=== PATIENT | female | born 1975 | race Caucasian/White ===

== ENCOUNTER 2023-05-14 20:58 | Observation (INO) ==
[2023-05-14] MEDS ORDERED: SODIUM CHLORIDE 0.9% 1,000 ML IV STA (21:02)
[2023-05-14 22:10] LABS: Basophils # (auto) 0.03 K/uL (0.00-0.20); Basophils % (auto) 0.3 %; Eosinophils # (auto) 0.01 K/uL (0.00-0.50); Eosinophils % (auto) 0.1 %; Hematocrit (blood only) 42.1 % (37.0-47.0); Hemoglobin 13.9 g/dl (12.0-16.0); Immature Granulocytes # (auto) 0.04 K/uL (0.01-0.20); Immature Granulocytes % (auto) 0.5 %; Lymphocytes # (auto) 0.84 K/uL (1.20-3.40); Lymphocytes % (auto) 9.5 %; Mean Corpuscular Hemoglobin 28.2 pg (25.0-34.0); Mean Corpuscular Volume 85.4 fL (80.0-100.0); Mean Platelet Volume 11.1 fL (9.4-12.4); Monocytes # (auto) 0.54 K/uL (0.11-0.59); Monocytes % (auto) 6.1 %; Neutrophils # (auto) 7.39 K/uL (1.40-6.50); Neutrophils % (auto) 83.5 %; Platelet Count 403 K/uL (130-400); Red Blood Count 4.93 M/uL (4.20-5.40); White Blood Count 8.85 K/ul (4.8-10.8)
[2023-05-14 22:16] LABS: Alanine Aminotransferase 40 U/L (7-52); Albumin Globulin Ratio 1.2 (0.9-2); Albumin Level 4.2 gm/dl (3.4-5.0); Alkaline Phosphatase 66 U/L (34-104); Anion Gap 12 (3-11); Aspartate Aminotransferase 29 U/L (13-39); BUN Creatinine Ratio 10.1 (10-20); Bilirubin,Total 0.5 mg/dl (0.2-1.0); Blood Urea Nitrogen 7 mg/dl (6-23); Calcium 9.9 mg/dl (8.6-10.3); Carbon Dioxide 23 mmol/L (21-32); Chloride 104 mmol/L (98-107); Est GFR (African American) 119.3 ml/min; Est GFR (Non-African American) 102.9 ml/min; Globulin 3.4 gm/dl (2.5-4.0); Glucose 94 mg/dl (70-99(Fasting)); Lipase 140 U/L (11-82); Potassium 3.2 mmol/L (3.5-5.1); Sodium 139 mmol/L (136-145); Total Protein 7.6 gm/dl (6.0-8.3)
[2023-05-15] MEDS ORDERED: FAMOTIDINE 20MG IV PUSH 20 MG/5 ML SYR IV STA (00:49)
[2023-05-15] MEDS ORDERED: ONDANSETRON INJ 2 MG/ML 2 ML VIAL IV STA (00:49)
[2023-05-15] MEDS ORDERED: MoRPHine SULFATE 4 MG/ML 1 ML CARP\\VIAL IV STA (00:49)
--- NOTE | 2023-05-15 01:21 | Emergency Department Note ---
History of Present Illness General Chief complaint: Abdominal Pain Stated complaint: ABDOMINAL PAIN Time Seen by Provider: 05/15/23 00:35 History of Present Illness Maximum Pain Intensity: 9 This 47-year-old female from [place] in town visiting family presents the ER complaining of upper abdominal pain with nausea and vomiting who had a gastric bypass and cholecystectomy done earlier this month in [place]. She has had a prior appendectomy. Patient denies chest pain, dyspnea, fevers, flank pain, urinary symptoms. She has moved her bowels. No blood or black in the vomit or stool. Allergies Allergy/AdvReac Type Severity Reaction Status Date / Time Penicillins Allergy Anaphylaxis Verified 05/14/23 21:12 Sulfa (Sulfonamide Allergy Hives Verified 05/14/23 21:12 Antibiotics) Past Med/Surg History Social History Smoking Status: Never smoker Preferred Language: Turkish Feels Safe at Home: Yes Review of Systems A total of 10 systems reviewed and were otherwise negative Physical Exam Vital Signs Vital Signs - 24 hr 05/14/23 21:00 05/14/23 21:16 05/15/23 01:00 Temperature 36.9 C 37 C Temperature Source Temporal Artery Scan Oral Pulse Rate 79 Pulse Rate [Finger] 75 62 Respiratory Rate 19 18 18 Respiratory Effort / Characteristics Non-Labored Spontaneous Respiratory Depth Normal Respiratory Pattern Regular Blood Pressure 139/80 Blood Pressure [Right Arm] 119/74 130/78 Blood Pressure Mean 99 Blood Pressure Mean [Right Arm] 89 95 Pulse Oximetry 100 100 96 Oxygen Delivery Method Room Air Room Air Room Air Sepsis Recent Fever Within 48 Hours No Sepsis New/Unexplained Change in Mental Status No Sepsis Action Taken by Nursing No Action Required 05/15/23 02:46 Temperature Temperature Source Pulse Rate Pulse Rate [Finger] 73 Respiratory Rate 20 Respiratory Effort / Characteristics Respiratory Depth Respiratory Pattern Blood Pressure Blood Pressure [Right Arm] 123/67 Blood Pressure Mean Blood Pressure Mean [Right Arm] 85 Pulse Oximetry 96 Oxygen Delivery Method Room Air Sepsis Recent Fever Within 48 Hours Sepsis New/Unexplained Change in Mental Status Sepsis Action Taken by Nursing VITALS: Vitals are noted on the nurse's note and reviewed by myself. Vital signs stable. GENERAL: White female with family present, in no acute distress, nondiaphoretic, well-developed well-nourished. SKIN: Capillary reflex less than 2 seconds. HEENT: Normocephalic. PERRLA. EOMI. Nares patent. Mucous membranes moist. Neck is supple without nuchal rigidity. HEART: Regular rate and rhythm LUNGS: Clear to auscultation bilaterally without wheezes, rales or rhonchi. No retractions or accessory muscle use. ABDOMEN: Positive bowel sounds x 4. Normal tympanic percussion. Soft, tender upper abdomen, incisional scars intact without signs of infection, without masses or organomegaly. Cueva sign negative. No guarding or rebound tenderness. No CVA tenderness MUSCULOSKELETAL: No gross musculoskeletal defects. NEURO: Patient was alert and oriented to person place and time. No focal neurological deficits. Course Administered Medications Fentanyl Citrate (Fentanyl Citrate Pf 100 Mcg/2 Ml Vial) 100 mcg IV Q15M PRN PRN Reason: Pain Stop: 05/29/23 01:31 Last Admin: 05/15/23 04:07 Dose: 100 mcg Documented By: Admin: 05/15/23 01:35 Dose: 100 mcg Documented By: RUCHI Discontinued Medications Sodium Chloride (Nss) 1,000 mls @ 999 mls/hr IV .Q1H1M STA Stop: 05/14/23 22:02 Last Infusion: 05/15/23 00:34 Dose: Infused Documented By: Admin: 05/14/23 21:18 Dose: 999 mls/hr Documented By: ANASTACIA Famotidine (Pepcid 20mg Iv Push) 20 mg in 5 mls @ 2.5 mls/min IV NOW STA Stop: 05/15/23 00:50 Last Admin: 05/15/23 01:00 Dose: 2.5 mls/min Documented By: RUCHI Sodium Chloride (Nss) 1,000 mls @ 999 mls/hr IV .Q1H1M ONE Stop: 05/15/23 02:54 Last Admin: 05/15/23 02:44 Dose: 999 mls/hr Documented By: RUCHI Ioversol (Optiray 320 500ml) 100 ml IV ONCE ONE Stop: 05/15/23 02:40 Last Admin: 05/15/23 02:40 Dose: 85 ml Documented By: LIANNA Morphine Sulfate (Morphine Sulfate 4 Mg/Ml 1 Ml Carp\Vial) 4 mg IV NOW STA Stop: 05/15/23 00:50 Last Admin: 05/15/23 01:00 Dose: 4 mg Documented By: RUCHI Ondansetron HCl (Ondansetron Inj 2 Mg/Ml 2 Ml Vial) 4 mg IV NOW STA Stop: 05/15/23 00:50 Last Admin: 05/15/23 01:00 Dose: 4 mg Documented By: RUCHI Medical Decision Making Medical Records Attestation: I reviewed the patient's medical records. Home Medications Current Medication List: was personally reviewed by me Laboratory Data Attestation: I reviewed the patient's lab results. 05/14/23 21:20 05/14/23 21:20 Lab Results 05/14/23 05/15/23 Range/Units 21:20 02:24 WBC 8.85 (4.8-10.8) K/ul RBC 4.93 (4.20-5.40) M/uL Hgb 13.9 (12.0-16.0) g/dl Hct 42.1 (37.0-47.0) % MCV 85.4 (80.0-100.0) fL MCH 28.2 (25.0-34.0) pg MCHC 33.0 (32.0-36.0) g/dL RDW Std Deviation 40.0 (36.4-46.3) fL RDW Coeff of Rhys 13.0 (11.5-14.5) % Plt Count 403 H (130-400) K/uL MPV 11.1 (9.4-12.4) fL Immature Gran % (Auto) 0.5 % Neut % (Auto) 83.5 % Lymph % (Auto) 9.5 % [place] % (Auto) 6.1 % Eos % (Auto) 0.1 % Baso % (Auto) 0.3 % Neut # (Auto) 7.39 H (1.40-6.50) K/uL Lymph # (Auto) 0.84 L (1.20-3.40) K/uL [place] # (Auto) 0.54 (0.11-0.59) K/uL Eos # (Auto) 0.01 (0.00-0.50) K/uL Baso # (Auto) 0.03 (0.00-0.20) K/uL Immature Gran # (Auto) 0.04 (0.01-0.20) K/uL Sodium 139 (136-145) mmol/L Potassium 3.2 L (3.5-5.1) mmol/L Chloride 104 (98-107) mmol/L Carbon Dioxide 23 (21-32) mmol/L Anion Gap 12 H (3-11) BUN 7 (6-23) mg/dl Creatinine 0.69 (0.6-1.2) mg/dl Est Cr Clr Drug Dosing Not Reportable Est GFR ( Amer) 119.3 ml/min Est GFR (Non-Af Amer) 102.9 ml/min BUN/Creatinine Ratio 10.1 (10-20) Glucose 94 (70-99(Fasting)) mg/dl Calcium 9.9 (8.6-10.3) mg/dl Magnesium 1.7 (1.7-2.4) mg/dl Total Bilirubin 0.5 (0.2-1.0) mg/dl AST 29 (13-39) U/L ALT 40 (7-52) U/L Alkaline Phosphatase 66 (34-104) U/L Troponin I High Sens 5.2 (0-14) pg/ml Total Protein 7.6 (6.0-8.3) gm/dl Albumin 4.2 (3.4-5.0) gm/dl Globulin 3.4 (2.5-4.0) gm/dl Albumin/Globulin Ratio 1.2 (0.9-2) Lipase 140 H (11-82) U/L Urine Color Yellow Urine Appearance Clear (Clear) Urine pH 7.0 (4.5-7.5) Ur Specific [place] 1.011 (1.000-1.030) Urine Protein Negative (Negative) Urine Glucose (UA) Negative (Negative) Urine Ketones 3+ H (Negative) Urine Blood Negative (Negative) Urine Nitrite Negative (Negative) Urine Bilirubin Negative (Negative) Urine Urobilinogen Negative (Negative) Ur Leukocyte Esterase Negative (Negative) Imaging Data Attestation: I personally reviewed and interpreted this imaging study as follows: Radiologist's Impression: Abdomen/Pelvis CT 05/14/23 22:40 Exam(s): CT ABDOMEN + PELVIS With Contrast Oral - High Density Amt: 30 ML GASTRO, IV Amt: 85 ML OPTIRAY 320 EXAM: CT Abdomen and Pelvis With Intravenous Contrast CLINICAL HISTORY: Reason for exam: s/p gastric bypass, pain. TECHNIQUE: Axial computed tomography images of the abdomen and pelvis with intravenous contrast. Automated exposure control was utilized for the study. A dose lowering technique was utilized adhering to the principles of ALARA. CONTRAST: Patient received 30 ML GASTRO of Oral - High Density and 85 ML OPTIRAY 320 of IV contrast COMPARISON: None FINDINGS: Lung bases: Unremarkable. No mass. No consolidation. ABDOMEN: Liver: Probable focal fat along the falciform ligament. Hepatomegaly. Gallbladder and bile ducts: Prior cholecystectomy. No ductal dilation. Pancreas: Unremarkable. No mass. No ductal dilation. Spleen: Unremarkable. No splenomegaly. Adrenals: Unremarkable. No mass. Kidneys and ureters: Unremarkable. No hydronephrosis or obstructing stone. Stomach and bowel: Gastric bypass changes. Evaluation of the stomach is limited by under distention.. Gastritis is not excluded. Fluid and gas-filled small bowel loops with mild prominence of the small bowel meneses could represent enteritis. Diverticulosis without evidence of diverticulitis. PELVIS: Appendix: Prior appendectomy. Bladder: Mild prominence of the bladder wall may be secondary to underdistention. Please correlate with urinalysis if concerned for cystitis. Reproductive: Fibroid uterus. Probable left adnexal cyst which could be further evaluated with ultrasound if clinically indicated. ABDOMEN and PELVIS: Intraperitoneal space: Small amount of ascites. No free air. Bones/joints: Degenerative changes of the spine. Soft tissues: Small fat-containing umbilical hernia. Vasculature: Unremarkable. No abdominal aortic aneurysm. Lymph nodes: Unremarkable. No enlarged lymph nodes. Tubes, lines and devices: Intrauterine device in place. IMPRESSION: 1. Gastric bypass changes. Evaluation of the stomach is limited by under distention. Gastritis is not excluded. 2. Fluid and gas-filled small bowel loops with mild prominence of the small bowel meneses could represent enteritis. 3. Small amount of ascites. 4. Mild prominence of the bladder wall may be secondary to underdistention. Please correlate with urinalysis if concerned for cystitis. 5. Fibroid uterus. Probable left adnexal cyst which could be further evaluated with ultrasound if clinically indicated. Electronically signed by: Klarissa Bates M.D. 05/15/23 03:55 AM MDM Narrative Prior records/ancillary studies reviewed. Triage Nursing notes reviewed. Additional history obtained from family. The patient's history was concerning for abdominal pain. Differential diagnosis: Etiologies such as complication of gastric bypass, appendicitis, diverticulitis, PUD, biliary pathology, UTI, pancreatitis, obstruction, mesenteric ischemia, aortic pathology, infections, inflammatory bowel disease, renal colic, as well as others were entertained. Physical examination findings: As above. ER treatment provided: An order was placed for continuous cardiac monitoring. The monitor shows a rate of 60-100 with a sinus rhythm per my Independent interpretation. Zofran, Pepcid, morphine, fentanyl, IV fluids, Protonix On reassessment the patient felt better. Diagnostics interpreted by me: The labs Independently Interpreted by myself revealed elevated lipase, no worrisome leukocytosis Negative urine Imaging studies: CT was reviewed and read by radiology as above Consultation: A consultation was placed with the hospitalist. The case was discussed and diagnostics were reviewed. The patient was evaluated in the ER for further treatment. Exam and history seem consistent with nausea vomiting with intractable abdominal pain. Patient was still in a moderate amount of pain. She does not feel comfortable going home. Medicine was consulted the case was discussed. She will be admitted by medicine for possible admission. By the evaluation outlined above emergent etiologies such as appendicitis, diverticulitis, PUD, biliary pathology, UTI, pancreatitis, obstruction, mesenteric ischemia, aortic pathology, infections, inflammatory bowel disease, renal colic, as well as others were deemed relatively unlikely. The pt informed about the findings as listed above. All questions were answered and pleased with the treatment. The chart was completed utilizing [employer] Speech voice recognition software. Grammatical errors, random word insertions, pronoun errors, and incomplete sentences are an occassional consequence of this system due to software limitations, ambient noise, and hardware issues. Any formal questions or concerns about the content, text, or information contained within the body of this dictation should be directly addressed to the physician surveyor instrument assistant for clarification. Impression & Plan Abdominal pain, acute, Nausea & vomiting Discharge Plan Visit Data Chief Complaint: Abdominal Pain Stated Complaint: ABDOMINAL PAIN ED Provider: Melania Osullivan ED Midlevel Provider: Opal Garcia Discharge Problem: Abdominal pain, acute, Nausea & vomiting Patient Disposition: Being Evaluated by Hospitalist Condition: Good Forms Stand Alone Forms: [facility] Referrals Referrals: ARNOLD SANCHEZ [Other]
[2023-05-15] MEDS: fentaNYL citrate PF 100 MCG/2 ML VIAL IV PRN ×2 (01:35→04:07)
[2023-05-15 01:51] LABS: Magnesium 1.7 mg/dl (1.7-2.4)
[2023-05-15] MEDS ORDERED: SODIUM CHLORIDE 0.9% 1,000 ML IV ONE (01:54)
[2023-05-15 01:59] LABS: Troponin I High Sensitivity 5.2 pg/ml (0-14)
[2023-05-15 02:30] LABS: Appearance Urine Clear (Clear); Bilirubin Urine Negative (Negative); Blood Urine Negative (Negative); Color Urine Yellow; Glucose Urine UA Negative (Negative); Ketones Urine 3+ (Negative); Leukocyte Esterase Urine Negative (Negative); Nitrite Urine Negative (Negative); Protein Urine Negative (Negative); Specific Gravity Urine 1.011 (1.000-1.030); Urobilinogen Urine Negative (Negative)
[2023-05-15] MEDS ORDERED: OPTIRAY 320 500ml IV ONE (02:39)
--- NOTE | 2023-05-15 03:55 | CT Scan Report ---
Exam(s): CT ABDOMEN + PELVIS With Contrast Oral - High Density Amt: 30 ML GASTRO, IV Amt: 85 ML OPTIRAY 320 EXAM: CT Abdomen and Pelvis With Intravenous Contrast CLINICAL HISTORY: Reason for exam: s/p gastric bypass, pain. TECHNIQUE: Axial computed tomography images of the abdomen and pelvis with intravenous contrast. Automated exposure control was utilized for the study. A dose lowering technique was utilized adhering to the principles of ALARA. CONTRAST: Patient received 30 ML GASTRO of Oral - High Density and 85 ML OPTIRAY 320 of IV contrast COMPARISON: None FINDINGS: Lung bases: Unremarkable. No mass. No consolidation. ABDOMEN: Liver: Probable focal fat along the falciform ligament. Hepatomegaly. Gallbladder and bile ducts: Prior cholecystectomy. No ductal dilation. Pancreas: Unremarkable. No mass. No ductal dilation. Spleen: Unremarkable. No splenomegaly. Adrenals: Unremarkable. No mass. Kidneys and ureters: Unremarkable. No hydronephrosis or obstructing stone. Stomach and bowel: Gastric bypass changes. Evaluation of the stomach is limited by under distention.. Gastritis is not excluded. Fluid and gas-filled small bowel loops with mild prominence of the small bowel meneses could represent enteritis. Diverticulosis without evidence of diverticulitis. PELVIS: Appendix: Prior appendectomy. Bladder: Mild prominence of the bladder wall may be secondary to underdistention. Please correlate with urinalysis if concerned for cystitis. Reproductive: Fibroid uterus. Probable left adnexal cyst which could be further evaluated with ultrasound if clinically indicated. ABDOMEN and PELVIS: Intraperitoneal space: Small amount of ascites. No free air. Bones/joints: Degenerative changes of the spine. Soft tissues: Small fat-containing umbilical hernia. Vasculature: Unremarkable. No abdominal aortic aneurysm. Lymph nodes: Unremarkable. No enlarged lymph nodes. Tubes, lines and devices: Intrauterine device in place. IMPRESSION: 1. Gastric bypass changes. Evaluation of the stomach is limited by under distention. Gastritis is not excluded. 2. Fluid and gas-filled small bowel loops with mild prominence of the small bowel meneses could represent enteritis. 3. Small amount of ascites. 4. Mild prominence of the bladder wall may be secondary to underdistention. Please correlate with urinalysis if concerned for cystitis. 5. Fibroid uterus. Probable left adnexal cyst which could be further evaluated with ultrasound if clinically indicated. Electronically signed by: Klarissa Bates M.D. 05/15/23 03:55 AM
[2023-05-15] MEDS ORDERED: PANTOprazole 40 MG in SYRINGE 0 ML IV ONE (04:35)
--- NOTE | 2023-05-15 05:45 | History & Physical Report ---
Date of Service May 15, 2023 Assessment & Plan (1) Abdominal pain, acute: Plan: 47-year-old female with past med history significant for hypertension, GERD, depression and sleep apnea presents with severe abdominal pain and nausea and vomiting started last night. Patient is from [place] she is visiting [place]. On April 27 she has gastric bypass surgery along with hiatal hernia repaired cholecystectomy and acid reflux fixed. Yesterday evening she had severe abdominal pain associated with nausea/ vomiting .Vomited several episodes. No blood in the vomiting. No diarrhea. Had low-grade fever. Denies any headache. No runny nose or sore throat. No cough. No chest pain or shortness of breath. Currently hemodynamically stable. Abdominal pain severe Recent gastric bypass surgery CT scan showing possible gastritis and enteritis Placed on IV Protonix 40 mg twice daily IV fluids Pain control IV antiemetics as needed N.p.o. for now If not improving will consult GI Hypertension On telmisartan Depression On bupropion and trazodone Sleep apnea CPAP nightly DVT prophylaxis Lovenox Disposition Observation medical floor Full code History of Present Illness Chief Complaint: Abdominal pain Primary Care Provider: ARNOLD SANCHEZ 47-year-old female with past med history significant for hypertension, GERD, depression and sleep apnea presents with severe abdominal pain and nausea and vomiting started last night. Patient is from [place] she is visiting [place]. On April 27 she has gastric bypass surgery along with hiatal hernia repaired cholecystectomy and acid reflux fixed. Yesterday evening she had severe abdominal pain associated with nausea/ vomiting .Vomited several episodes. No blood in the vomiting. No diarrhea. Had low-grade fever. Denies any headache. No runny nose or sore throat. No cough. No chest pain or shortness of breath. Currently hemodynamically stable. Past medical history. As mentioned above Past surgical history. Gastric bypass surgery with cholecystectomy, hiatal hernia repair and acid reflux surgery as per patient. Appendectomy. Removal of fibroids. Social history. No smoking. No alcohol. Family history. Father had heart disease. Hypertension. Prostate cancer. Blood clots. Mother had diabetes and high blood pressure. Allergies Allergy/AdvReac Type Severity Reaction Status Date / Time Penicillins Allergy Anaphylaxis Verified 05/14/23 21:12 Sulfa (Sulfonamide Allergy Hives Verified 05/14/23 21:12 Antibiotics) Home Medications Medication Instructions Recorded Confirmed Type bupropion HCl 150 mg tablet,12 hr 150 mg PO BID 05/15/23 05/15/23 History sustained-release famotidine 20 mg tablet 20 mg PO DAILY 05/15/23 05/15/23 History gabapentin 400 mg capsule 400 mg PO TID 05/15/23 05/15/23 History telmisartan 20 mg tablet 20 mg PO DAILY 05/15/23 05/15/23 History trazodone 100 mg tablet 100 mg PO HS 05/15/23 05/15/23 History Past Med/Surg History Social History Smoking Status: Never smoker Preferred Language: Indian Feels Safe at Home: Yes Review of Systems Review of Systems: All systems reviewed & are unremarkable except as noted in HPI & below Physical Exam Physical Exam: General- Not in distress. Head- atraumatic Eyes- EOMI ENT- oropharynx clear Neck- supple, no JVD Lungs- clear to auscultation no wheezing or crackles. Heart- regular rhythm; no murmur, no gallop. Abdomen- normal bowel sounds, soft, diffuse tender, no distension. Laparoscopic surgery sites no erythema or drainage seen. Extremities- no edema seen. Neuro- alert, oriented x 3; no facial palsy; no dysarthria; moves extremities. Skin- warm & dry Results & Data Results & Data Vital Signs (Past 12 Hours) Vital Signs Temp Pulse Pulse Resp BP BP Pulse Ox 05/15/23 02:46 73 20 123/67 96 05/15/23 01:00 62 18 130/78 96 05/14/23 21:16 37 C 75 18 119/74 100 05/14/23 21:00 36.9 C 79 19 139/80 100 O2 Del Method 05/15/23 02:46 Room Air 05/15/23 01:00 Room Air 05/14/23 21:16 Room Air 05/14/23 21:00 Room Air Diagnostic Findings Laboratory Results WBC 8.85 K/ul (4.8-10.8) 05/14/23 21:20 RBC 4.93 M/uL (4.20-5.40) 05/14/23 21:20 Hgb 13.9 g/dl (12.0-16.0) 05/14/23 21:20 Hct 42.1 % (37.0-47.0) 05/14/23 21:20 MCV 85.4 fL (80.0-100.0) 05/14/23 21:20 MCH 28.2 pg (25.0-34.0) 05/14/23 21:20 MCHC 33.0 g/dL (32.0-36.0) 05/14/23 21:20 RDW Std Deviation 40.0 fL (36.4-46.3) 05/14/23 21:20 RDW Coeff of Rhys 13.0 % (11.5-14.5) 05/14/23 21:20 Plt Count 403 K/uL (130-400) H 05/14/23 21:20 MPV 11.1 fL (9.4-12.4) 05/14/23 21:20 Immature Gran % (Auto) 0.5 % 05/14/23 21:20 Neut % (Auto) 83.5 % 05/14/23 21:20 Lymph % (Auto) 9.5 % 05/14/23 21:20 [place] % (Auto) 6.1 % 05/14/23 21:20 Eos % (Auto) 0.1 % 05/14/23 21:20 Baso % (Auto) 0.3 % 05/14/23 21:20 Neut # (Auto) 7.39 K/uL (1.40-6.50) H 05/14/23 21:20 Lymph # (Auto) 0.84 K/uL (1.20-3.40) L 05/14/23 21:20 [place] # (Auto) 0.54 K/uL (0.11-0.59) 05/14/23 21:20 Eos # (Auto) 0.01 K/uL (0.00-0.50) 05/14/23 21:20 Baso # (Auto) 0.03 K/uL (0.00-0.20) 05/14/23 21:20 Immature Gran # (Auto) 0.04 K/uL (0.01-0.20) 05/14/23 21:20 Sodium 139 mmol/L (136-145) 05/14/23 21:20 Potassium 3.2 mmol/L (3.5-5.1) L 05/14/23 21:20 Chloride 104 mmol/L (98-107) 05/14/23 21:20 Carbon Dioxide 23 mmol/L (21-32) 05/14/23 21:20 Anion Gap 12 (3-11) H 05/14/23 21:20 BUN 7 mg/dl (6-23) 05/14/23 21:20 Creatinine 0.69 mg/dl (0.6-1.2) 05/14/23 21:20 Est Cr Clr Drug Dosing Not Reportable 05/14/23 21:20 Est GFR ( Amer) 119.3 ml/min 05/14/23 21:20 Est GFR (Non-Af Amer) 102.9 ml/min 05/14/23 21:20 BUN/Creatinine Ratio 10.1 (10-20) 05/14/23 21:20 Glucose 94 mg/dl (70-99(Fasting)) 05/14/23 21:20 Calcium 9.9 mg/dl (8.6-10.3) 05/14/23 21:20 Magnesium 1.7 mg/dl (1.7-2.4) 05/14/23 21:20 Total Bilirubin 0.5 mg/dl (0.2-1.0) 05/14/23 21:20 AST 29 U/L (13-39) 05/14/23 21:20 ALT 40 U/L (7-52) 05/14/23 21:20 Alkaline Phosphatase 66 U/L (34-104) 05/14/23 21:20 Troponin I High Sens 5.2 pg/ml (0-14) 05/14/23 21:20 Total Protein 7.6 gm/dl (6.0-8.3) 05/14/23 21:20 Albumin 4.2 gm/dl (3.4-5.0) 05/14/23 21:20 Globulin 3.4 gm/dl (2.5-4.0) 05/14/23 21:20 Albumin/Globulin Ratio 1.2 (0.9-2) 05/14/23 21:20 Lipase 140 U/L (11-82) H 05/14/23 21:20 Urine Color Yellow 05/15/23 02:24 Urine Appearance Clear (Clear) 05/15/23 02:24 Urine pH 7.0 (4.5-7.5) 05/15/23 02:24 Ur Specific [place] 1.011 (1.000-1.030) 05/15/23 02:24 Urine Protein Negative (Negative) 05/15/23 02:24 Urine Glucose (UA) Negative (Negative) 05/15/23 02:24 Urine Ketones 3+ (Negative) H 05/15/23 02:24 Urine Blood Negative (Negative) 05/15/23 02:24 Urine Nitrite Negative (Negative) 05/15/23 02:24 Urine Bilirubin Negative (Negative) 05/15/23 02:24 Urine Urobilinogen Negative (Negative) 05/15/23 02:24 Ur Leukocyte Esterase Negative (Negative) 05/15/23 02:24 Impressions Abdomen/Pelvis CT 05/14/23 22:40 Exam(s): CT ABDOMEN + PELVIS With Contrast Oral - High Density Amt: 30 ML GASTRO, IV Amt: 85 ML OPTIRAY 320 EXAM: CT Abdomen and Pelvis With Intravenous Contrast CLINICAL HISTORY: Reason for exam: s/p gastric bypass, pain. TECHNIQUE: Axial computed tomography images of the abdomen and pelvis with intravenous contrast. Automated exposure control was utilized for the study. A dose lowering technique was utilized adhering to the principles of ALARA. CONTRAST: Patient received 30 ML GASTRO of Oral - High Density and 85 ML OPTIRAY 320 of IV contrast COMPARISON: None FINDINGS: Lung bases: Unremarkable. No mass. No consolidation. ABDOMEN: Liver: Probable focal fat along the falciform ligament. Hepatomegaly. Gallbladder and bile ducts: Prior cholecystectomy. No ductal dilation. Pancreas: Unremarkable. No mass. No ductal dilation. Spleen: Unremarkable. No splenomegaly. Adrenals: Unremarkable. No mass. Kidneys and ureters: Unremarkable. No hydronephrosis or obstructing stone. Stomach and bowel: Gastric bypass changes. Evaluation of the stomach is limited by under distention.. Gastritis is not excluded. Fluid and gas-filled small bowel loops with mild prominence of the small bowel meneses could represent enteritis. Diverticulosis without evidence of diverticulitis. PELVIS: Appendix: Prior appendectomy. Bladder: Mild prominence of the bladder wall may be secondary to underdistention. Please correlate with urinalysis if concerned for cystitis. Reproductive: Fibroid uterus. Probable left adnexal cyst which could be further evaluated with ultrasound if clinically indicated. ABDOMEN and PELVIS: Intraperitoneal space: Small amount of ascites. No free air. Bones/joints: Degenerative changes of the spine. Soft tissues: Small fat-containing umbilical hernia. Vasculature: Unremarkable. No abdominal aortic aneurysm. Lymph nodes: Unremarkable. No enlarged lymph nodes. Tubes, lines and devices: Intrauterine device in place. IMPRESSION: 1. Gastric bypass changes. Evaluation of the stomach is limited by under distention. Gastritis is not excluded. 2. Fluid and gas-filled small bowel loops with mild prominence of the small bowel meneses could represent enteritis. 3. Small amount of ascites. 4. Mild prominence of the bladder wall may be secondary to underdistention. Please correlate with urinalysis if concerned for cystitis. 5. Fibroid uterus. Probable left adnexal cyst which could be further evaluated with ultrasound if clinically indicated. Electronically signed by: Klarissa Bates M.D. 05/15/23 03:55 AM ECG Additional Comments: ECG sinus bradycardia with first-degree AV block rate of 56. No acute ST changes seen. Code Status & VTE Plan VTE Prophylaxis Plan VTE Prophylaxis will be ordered: Yes
[2023-05-15] MEDS ORDERED: ACETAMINOPHEN 325 MG TAB PO PRN (06:15)
[2023-05-15] MEDS ORDERED: HYDROmorphone INJ 0.5 MG/0.5 ML SYR IV PRN (06:15)
[2023-05-15 08:10] LABS: Basophils # (auto) 0.02 K/uL (0.00-0.20); Basophils % (auto) 0.4 %; Eosinophils # (auto) 0.05 K/uL (0.00-0.50); Eosinophils % (auto) 0.9 %; Hematocrit (blood only) 33.9 % (37.0-47.0); Hemoglobin 11.3 g/dl (12.0-16.0); Immature Granulocytes # (auto) 0.01 K/uL (0.01-0.20); Immature Granulocytes % (auto) 0.2 %; Lymphocytes # (auto) 1.61 K/uL (1.20-3.40); Mean Corpuscular Hemoglobin 28.8 pg (25.0-34.0); Mean Corpuscular Hgb Conc 33.3 g/dL (32.0-36.0); Mean Corpuscular Volume 86.3 fL (80.0-100.0); Mean Platelet Volume 10.9 fL (9.4-12.4); Monocytes # (auto) 0.71 K/uL (0.11-0.59); Monocytes % (auto) 12.8 %; Neutrophils # (auto) 3.15 K/uL (1.40-6.50); Neutrophils % (auto) 56.7 %; Platelet Count 279 K/uL (130-400); RDW Coefficient of Variation 13.2 % (11.5-14.5); RDW Standard Deviation 41.6 fL (36.4-46.3); Red Blood Count 3.93 M/uL (4.20-5.40); White Blood Count 5.55 K/ul (4.8-10.8)
[2023-05-15 08:24] LABS: BUN Creatinine Ratio 10.9 (10-20); Calcium 8.5 mg/dl (8.6-10.3); Est GFR (African American) 122.3 ml/min; Est GFR (Non-African American) 105.5 ml/min; Magnesium 1.8 mg/dl (1.7-2.4); Potassium 3.4 mmol/L (3.5-5.1)
[2023-05-15] MEDS: Patient's HEIGHT &/or WEIGHT Needed SCH ×2 (08:47→16:59)
[2023-05-15] MEDS: D5W AND 1/2NSS 1,000 ML IV SCH ×2 (08:52→21:27)
[2023-05-15] MEDS: PANTOprazole 40 MG in SYRINGE 0 ML IV SCH ×2 (09:54→19:50)
[2023-05-15] MEDS: buPROPion SR 150 MG TABCR PO SCH ×2 (09:55→19:50)
[2023-05-15] MEDS: LOSARTAN POTASSIUM 25 MG TAB PO SCH (09:55)
[2023-05-15] MEDS: ENOXAPARIN INJ 40 MG/0.4 ML SYR SQ SCH (09:55)
[2023-05-15] MEDS: GABAPENTIN 400 MG CAP PO SCH ×4 (09:55→19:50)
[2023-05-15] MEDS: ONDANSETRON INJ 2 MG/ML 2 ML VIAL IV PRN ×2 (10:08→19:32)
--- NOTE | 2023-05-15 11:11 | Electrocardiogram Report ---
Test Reason : Blood Pressure : / mmHG Vent. Rate : 056 BPM Atrial Rate : 056 BPM P-R Int : 218 ms QRS Dur : 096 ms QT Int : 454 ms P-R-T Axes : 028 012 000 degrees QTc Int : 438 ms Sinus bradycardia with 1st degree A-V block Abnormal ECG No previous ECGs available Confirmed by Lucio Rodriguez ([id number]) on 05/15/2023 11:11:13 AM Referred By: REFERRED SELF Confirmed By:Amado Rodriguez
[2023-05-15] MEDS ORDERED: POTASSIUM CHLORIDE CRTAB 20 MEQ TABCR PO STA (11:22)
--- NOTE | 2023-05-15 11:59 | Communication Note ---
Date of Service: May 15, 2023 Pt seen with sister at bedside. States that she has been having persistent abdominal pain even with a sip of water to take meds. Describes it as a shahla pain that in turn causes the nausea. Feels like pain is in the epigastrium but states whole abdomen tender post op and especially with all the dry heaving she has been doing. Feels like her symptoms are getting worse. States that her pain and N/V is finally controlled at this time, states was uncomfortable all morning. Request to obtain recent surgical records from [facility]. IV potassium ordered. General Surgery consult in setting of recent cholecystectomy/bypass surgery and gnawing pain or tightening with any oral intake. Appreciate recs GI consult as well. Appreciate recs. Otherwise please see H &P from the same date.
[2023-05-15] MEDS: POTASSIUM CHLORIDE / WTR 10 MEQ/100 ML PLCT IV SCH ×2 (13:05→14:07)
--- NOTE | 2023-05-15 13:32 | Gastrointestinal Consultation ---
Date of Consultation May 15, 2023 Assessment & Plan (1) Nausea & vomiting: (2) Abdominal pain, acute: (3) Gastric bypass status for obesity: Pt is a 47 yo female (4) S/P cholecystectomy: Pt is a 47 yo female w recent gastric bypass, cholecystectomy, hiatal hernia repair who presented w abd pain, n/v since last evening. Labs and CT scan reviewed. No obvious signs of perforation. LFTs normal, lipase mildly elevated wo pancreatitis on CT. ? gastritis. Other DDX: PUD, bile leak (less likely given normal LFTs), infectious gastroenteritis - Keep NPO, IVF support - PPI IV BID - Obtain surgery records from [place] - Surgery consulted - Symptomatic management with antiemetics - Defer EGD eval at this time - Check stools studies to r/o infections if diarrhea Supervising Physician Co-Signing Physician Notes I personally saw and evaluated the patient on 05/15/2023 with DELFINO Borja and agree with her findings and plan of care. Abdomen soft and non-tender. patient with recent gastric bypass surgery, cholecystectomy, and hiatal hernia repair 2 weeks ago in [place]. Presented with N/V. CT scan reviewed without any concerning findings ? gastritis and enteritis. Recommend supportive care at this time. Anti-emetics PRN for nausea and vomiting. Can schedule them if persistent nausea. Liquid diet as tolerated. No indication for any endoscopy at this time with a fresh gastric surgery and hernia repair. PPI 40 mg BID. Agree with surgery consult. No evidence of dilated stomach on CT scan to suggest any GJ stenosis. Edith Pedroza, DO Gastroenterology and Hepatology History of Present Illness Reason for Consultation: Abdominal pain, n/v Requesting Physician: Dr. Debra Lacy Attending Physician: Dr. Edith Pedroza History of Present Illness Pt is a 47 you female w PMHx of HTN, GERD, depression, sleep apnea who presented w c/o abd pain, n/v symptoms since 4-5PM yesterday. She is from [place], and is s/p gastric bypass, cholecystectomy, hiatal hernia repair on 04/27/2023. She was doing well post op wo complications. Had been taking protein shakes, and eating mostly [place] diet. Yesterday afternoon tried some "mushy foods" such as mozzarella and red sauces. Later in the evening started to have squeezing like pain on epigastric area, then nausea and vomiting. Denies any hematemesis or coffee ground emesis. Stool have been loose but non bloody or tarry. She denies NSAIDs, tobacco or ETOH. She had been on Pepcid and Gas X prior to coming to ED wo relief. Denies sick contact. Labs reviewed - no leukocytosis, mild anemia, no renal or electrolyte derrangement, LFTs normal, lipase mildy elevated 140 CT abd/pelvis w contrast: 1. Gastric bypass changes. Evaluation of the stomach is limited by under distention. Gastritis is not excluded. 2. Fluid and gas-filled small bowel loops with mild prominence of the small bowel meneses could represent enteritis. 3. Small amount of ascites. 4. Mild prominence of the bladder wall may be secondary to underdistention. Please correlate with urinalysis if concerned for cystitis. 5. Fibroid uterus. Probable left adnexal cyst which could be further evaluated with ultrasound if clinically indicated. Allergies Allergy/AdvReac Type Severity Reaction Status Date / Time Penicillins Allergy Anaphylaxis Verified 05/14/23 21:12 Sulfa (Sulfonamide Allergy Hives Verified 05/14/23 21:12 Antibiotics) Home Medications Medication Instructions Recorded Confirmed Type bupropion HCl 150 mg tablet,12 hr 150 mg PO BID 05/15/23 05/15/23 History sustained-release famotidine 20 mg tablet 20 mg PO DAILY 05/15/23 05/15/23 History gabapentin 400 mg capsule 400 mg PO TID 05/15/23 05/15/23 History telmisartan 20 mg tablet 20 mg PO DAILY 05/15/23 05/15/23 History trazodone 100 mg tablet 100 mg PO HS 05/15/23 05/15/23 History Patient History Social History Smoking Status: Never smoker Preferred Language: Wolof Feels Safe at Home: Yes Review of Systems Review of Systems: All systems reviewed & are unremarkable except as noted in HPI & below Physical Exam Constitutional: WD/WN, vitals as above well groomed, cooperative and comfortable Eyes: PERRL, conjunctivae normal, anicteric sclerae ENMT: external ear and nose normal, oropharynx normal Respiratory: normal respiratory effort, lungs clear to auscultation Cardiovascular: RRR, no murmur, no edema Gastrointestinal (Abdomen): TTP epigastric, soft, Skin: no rashes, warm and dry no jaundice Neurologic: Motor/Sensory: no asterixis Psychiatric: A+Ox3, euthymic affect Lymphatic: no lymphedema Results & Data Vital Signs (Past 12 Hours) Vital Signs Pulse Resp BP Pulse Ox O2 Del Method 05/15/23 08:29 64 18 165/81 H 98 Room Air 05/15/23 05:45 58 L 18 123/74 99 Room Air 05/15/23 02:46 73 20 123/67 96 Room Air
--- NOTE | 2023-05-15 15:22 | Surgery Consultation ---
Date of Consultation May 15, 2023 Assessment & Plan (1) Gastric bypass status for obesity: Etiology of her symptoms is unclear. There is no indication for urgent surgical intervention. Potentially she could have just obtained a viral gastroenteritis. Although it is rather early for this that she could potentially have developed a marginal ulcer with stricture. I recommend admission for supportive care including IV fluid pain and nausea control. Will continue to follow along. (2) Nausea & vomiting: (3) Abdominal pain, acute: History of Present Illness Attending Physician: Debra Lacy MD History of Present Illness 47-year-old female who is about 3 weeks status post Kevin-en-Y gastric bypass performed in [place]. She is here visiting her mother. She began yesterday around 4 PM with epigastric pain as well as dry heaving. This continued so she came to the emergency room. She continues to have waves of discomfort. Currently not nauseated. Workup shows normal WBC. She is afebrile. She is not tachycardic. CT scan shows potential enteritis no evidence of a small bowel obstruction. Allergies Allergy/AdvReac Type Severity Reaction Status Date / Time Penicillins Allergy Anaphylaxis Verified 05/14/23 21:12 Sulfa (Sulfonamide Allergy Hives Verified 05/14/23 21:12 Antibiotics) Home Medications Medication Instructions Recorded Confirmed Type bupropion HCl 150 mg tablet,12 hr 150 mg PO BID 05/15/23 05/15/23 History sustained-release famotidine 20 mg tablet 20 mg PO DAILY 05/15/23 05/15/23 History gabapentin 400 mg capsule 400 mg PO TID 05/15/23 05/15/23 History telmisartan 20 mg tablet 20 mg PO DAILY 05/15/23 05/15/23 History trazodone 100 mg tablet 100 mg PO HS 05/15/23 05/15/23 History Patient History Social History Smoking Status: Never smoker Preferred Language: Hungarian Feels Safe at Home: Yes Physical Exam Constitutional: WD/WN, vitals as above no acute distress and not ill appear ing Eyes: PERRL, conjunctivae normal, anicteric sclerae EOM intact bilaterally ENMT: external ear and nose normal, oropharynx normal Ears: no hearing impairment Neck: trachea midline, no thyromegaly Respiratory: normal respiratory effort; no respiratory distress and does not use accessory muscles Cardiovascular: Rate/Rhythm: regular rate and regular rhythm Gastrointestinal (Abdomen): Soft. Minimal epigastric tenderness. All of her incisions are healing nicely. No evidence of peritonitis Skin: no rashes, warm and dry Psychiatric: Orientation: alert, oriented x 3 and cooperative Results & Data Vital Signs (Past 12 Hours) Vital Signs Pulse Resp BP Pulse Ox O2 Del Method 05/15/23 08:29 64 18 165/81 H 98 Room Air 05/15/23 05:45 58 L 18 123/74 99 Room Air PG Care Time/CCT Total # of Minutes Spent Total Time Spent with Patient: Total time spent is greater than 50% in coordination of care (as documented) at patient's floor/unit and/or counseling patient: Coding Level of Care Code 65280 IN/OBS CONSULT LVL 4,60M Diagnoses Gastric bypass status for obesity Z98.84 Nausea & vomiting R11.2 Abdominal pain, acute R10.9
[2023-05-15] MEDS ORDERED: ACETAMINOPHEN 1,000 MG/100 ML VIAL IV PRN (16:38)
[2023-05-15] MEDS: traZODone HCL 100 MG TAB PO SCH (19:50)
[2023-05-16] MEDS: D5W AND 1/2NSS 1,000 ML IV SCH ×4 (05:14→20:54)
--- NOTE | 2023-05-16 05:30 | Surgery Progress Note ---
Date of Service May 16, 2023 Assessment & Plan (1) Abdominal pain, acute: Plan: Patient has been admitted on the hospitalist service. CT scan of abdomen pelvis at time of admission did not show evidence of definite small bowel obstruction. There was fluid and gas-filled small bowel loops potentially representing an enteritis Continue supportive care with antiemetics Continue supportive care with intravenous fluids Continue clear liquids for the present time with consideration of advancement as patient's symptoms jay At this time there does not appear to be an indication for acute surgical intervention Check a.m. labs when available Lovenox is in place for DVT prevention as above. improved from yesterday. will advance to bariatric diet. if tolerates could be d/c'd later today/tomorrow. Admission and Anticipated Discharge Date Admission Date: May 15, 2023 Subjective Patient is currently sleeping in bed and easily arousable. She notes that she has some generalized abdominal pain but has improved since admission. She denies any nausea or vomiting since admission and has tolerated some sips of clear liquids. Physical Exam Gastrointestinal (Abdomen): Abdomen is soft, nonrigid, nondistended. Patient did have some generalized pain with palpation which appear to be greatest just superior to the umbilicus. There is no rebound tenderness or guarding. Results & Data Vital Signs (Past 12 Hours) Vital Signs Temp Pulse Resp BP Pulse Ox O2 Del Method 05/15/23 19:41 36.3 C L 68 18 125/82 96 Room Air 05/15/23 18:18 36.7 C 68 17 115/72 95 Room Air PG Care Time/CCT Total # of Minutes Spent Total Time Spent with Patient: Total time spent is greater than 50% in coordination of care (as documented) at patient's floor/unit and/or counseling patient: Coding Level of Care Code 19664 SUB INP/OBS CARE 1/25MIN Diagnoses Abdominal pain, acute R10.9
[2023-05-16 06:33] LABS: Basophils # (auto) 0.02 K/uL (0.00-0.20); Basophils % (auto) 0.6 %; Eosinophils # (auto) 0.09 K/uL (0.00-0.50); Eosinophils % (auto) 2.6 %; Hematocrit (blood only) 33.5 % (37.0-47.0); Lymphocytes # (auto) 1.29 K/uL (1.20-3.40); Lymphocytes % (auto) 37.5 %; Mean Corpuscular Hemoglobin 28.7 pg (25.0-34.0); Mean Corpuscular Hgb Conc 32.8 g/dL (32.0-36.0); Mean Corpuscular Volume 87.5 fL (80.0-100.0); Monocytes # (auto) 0.41 K/uL (0.11-0.59); Monocytes % (auto) 11.9 %; Neutrophils # (auto) 1.63 K/uL (1.40-6.50); Neutrophils % (auto) 47.4 %; Platelet Count 235 K/uL (130-400); RDW Coefficient of Variation 13.6 % (11.5-14.5); RDW Standard Deviation 43.5 fL (36.4-46.3); Red Blood Count 3.83 M/uL (4.20-5.40); White Blood Count 3.44 K/ul (4.8-10.8)
[2023-05-16 07:04] LABS: Albumin Globulin Ratio 1.3 (0.9-2); Albumin Level 3.2 gm/dl (3.4-5.0); BUN Creatinine Ratio 5.2 (10-20); Bilirubin,Total 0.2 mg/dl (0.2-1.0); Calcium 8.2 mg/dl (8.6-10.3); Creatinine Clr Calc Pharmacy 179.9 ml/min; Est GFR (African American) 126.3 ml/min; Globulin 2.5 gm/dl (2.5-4.0); Magnesium 1.8 mg/dl (1.7-2.4); Phosphorus 3.2 mg/dl (2.5-4.9); Potassium 3.4 mmol/L (3.5-5.1); Total Protein 5.7 gm/dl (6.0-8.3)
[2023-05-16] MEDS: buPROPion SR 150 MG TABCR PO SCH ×2 (08:46→20:33)
[2023-05-16] MEDS: PANTOprazole 40 MG in SYRINGE 0 ML IV SCH ×2 (08:46→20:32)
[2023-05-16] MEDS: LOSARTAN POTASSIUM 25 MG TAB PO SCH (08:46)
[2023-05-16] MEDS: ENOXAPARIN INJ 40 MG/0.4 ML SYR SQ SCH (08:46)
[2023-05-16] MEDS: GABAPENTIN 400 MG CAP PO SCH ×3 (08:46→20:33)
[2023-05-16] MEDS: POTASSIUM CHLORIDE / WTR 10 MEQ/100 ML PLCT IV SCH ×2 (12:04→13:09)
--- NOTE | 2023-05-16 18:06 | Hospitalist Progress Note ---
Date of Service May 16, 2023 Assessment & Plan (1) Abdominal pain, acute: Plan: 47-year-old female with past med history significant for hypertension, GERD, depression and sleep apnea presents with severe abdominal pain and nausea and vomiting for the past day. She is s/p cholecystectomy, hernia repair and gastric bypass in [place] at [facility] Records have been requested but are currently pending due to HIM being closed at the facility on a holiday weekend. Abdominal pain severe Intractable N/V Recent gastric bypass surgery/cholecystectomy, hernia repair CT scan showing possible gastritis and enteritis Placed on IV Protonix 40 mg twice daily IV fluids Pain control IV antiemetics as needed GI and surgery consulted- appreciate recs -recommending conservative management Diet being advanced and pt tolerating well at this time Hypertension On telmisartan, continue with formulary alternative Depression On bupropion and trazodone, continue Sleep apnea CPAP nightly Diet: currently ordered bariatric diet per Surgery DVT prophylaxis: Lovenox Disposition: Home once tolerating food well, symptoms improved Admission and Anticipated Discharge Date Admission Date: May 15, 2023 Subjective Pt seen while eating lunch with clear liquids. Was tolerating well. Stated that her symptoms had improved significantly. No more of the abdominal "shahla" pain. N/V episodes had stopped. Review of Systems Review of Systems: All systems reviewed & are unremarkable except as noted in Subjective Physical Exam Physical Exam: General: Alert, oriented. No acute distress Skin: No noted rashes or bruises Psych: Appropriate mood and affect Neuro: No gross deficits HEENT: NC/AT CV: RRR Resp: Breath sounds clear bilaterally, no increased effort of breathing. Abdomen: very tender in RUQ Extremities: No edema in lower extremities bilaterally. Results & Data Results & Data Vital Signs (Past 12 Hours) Vital Signs Temp Pulse Resp BP Pulse Ox O2 Del Method 05/16/23 17:12 36.8 C 74 16 110/73 95 Room Air 05/16/23 07:05 36.6 C 64 18 101/68 96 Room Air
[2023-05-16] MEDS: traZODone HCL 100 MG TAB PO SCH (20:33)
[2023-05-17] MEDS: D5W AND 1/2NSS 1,000 ML IV SCH (04:36)
--- NOTE | 2023-05-17 06:19 | Surgery Progress Note ---
Date of Service May 17, 2023 Assessment & Plan (1) Abdominal pain, acute: Plan: Patient has been admitted on the hospitalist service. CT scan of abdomen pelvis at time of admission did not show evidence of definite small bowel obstruction. There was fluid and gas-filled small bowel loops potentially representing an enteritis Continue supportive care with antiemetics Continue supportive care with intravenous fluids Continue clear liquids for the present time with consideration of advancement as patient's symptoms jay At this time there does not appear to be an indication for acute surgical intervention Check a.m. labs when available Lovenox is in place for DVT prevention as above. Patient tolerating stage III bariatric diet. No new issues and feeling better. Okay from my standpoint for discharge. She should follow-up with her bariatric surgeon upon returning home. Plan Patient has been admitted on the hospitalist service. Continue surgical care as follows: CT scan at time of admission showed concern for enteritis without definite bowel obstruction Patient has thus far tolerated diet advancement which should continue Continue analgesics and antiemetics as needed Check a.m. labs when available Lovenox is in place for DVT prevention Admission and Anticipated Discharge Date Admission Date: May 16, 2023 Subjective Patient notes overall her abdominal pain continues to improve since admission. Patient notes she has tolerated advancement of her diet to pured food without nausea or vomiting. Physical Exam Gastrointestinal (Abdomen): Abdomen is soft and nondistended. There is no rebound tenderness or guarding but patient did have some pain associated with her surgical incisions. Bowel sounds are present. Results & Data Vital Signs (Past 12 Hours) Vital Signs Temp Pulse Resp BP Pulse Ox O2 Del Method 05/16/23 20:16 36.7 C 71 18 100/66 95 Room Air PG Care Time/CCT Total # of Minutes Spent Total Time Spent with Patient: Total time spent is greater than 50% in coordination of care (as documented) at patient's floor/unit and/or counseling patient: Coding Level of Care Code 02103 SUB INP/OBS CARE 1/25MIN Diagnoses Abdominal pain, acute R10.9
[2023-05-17 06:21] LABS: Hemoglobin 10.5 g/dl (12.0-16.0); Mean Corpuscular Hemoglobin 28.7 pg (25.0-34.0); Mean Corpuscular Hgb Conc 32.8 g/dL (32.0-36.0); Mean Corpuscular Volume 87.4 fL (80.0-100.0); Mean Platelet Volume 11.1 fL (9.4-12.4); Platelet Count 225 K/uL (130-400); RDW Coefficient of Variation 13.2 % (11.5-14.5); RDW Standard Deviation 42.2 fL (36.4-46.3); Red Blood Count 3.66 M/uL (4.20-5.40); White Blood Count 4.29 K/ul (4.8-10.8)
[2023-05-17 06:57] LABS: BUN Creatinine Ratio 5.4 (10-20); Calcium 8.1 mg/dl (8.6-10.3); Creatinine Clr Calc Pharmacy 186.3 ml/min; Est GFR (African American) 127.8 ml/min; Est GFR (Non-African American) 110.3 ml/min; Potassium 3.2 mmol/L (3.5-5.1)
[2023-05-17] MEDS: ENOXAPARIN INJ 40 MG/0.4 ML SYR SQ SCH (08:14)
[2023-05-17] MEDS: PANTOprazole 40 MG in SYRINGE 0 ML IV SCH (08:14)
[2023-05-17] MEDS: GABAPENTIN 400 MG CAP PO SCH ×2 (08:14→14:43)
[2023-05-17] MEDS: buPROPion SR 150 MG TABCR PO SCH (08:14)
[2023-05-17] MEDS: LOSARTAN POTASSIUM 25 MG TAB PO SCH (08:14)
[2023-05-17] MEDS: POTASSIUM CHLORIDE CRTAB 20 MEQ TABCR PO SCH ×2 (11:13→15:37)
--- NOTE | 2023-05-17 11:56 | Discharge Summary ---
Discharge Summary Date of Service May 17, 2023 Notes For Next Care Provider Medication Changes From Visit no new medications Admission HPI Per Admitting Provider 47-year-old female with past med history significant for hypertension, GERD, depression and sleep apnea presents with severe abdominal pain and nausea and vomiting started last night. Patient is from [place] she is visiting [place]. On April 27 she has gastric bypass surgery along with hiatal hernia repaired cholecystectomy and acid reflux fixed. Yesterday evening she had severe abdominal pain associated with nausea/ vomiting .Vomited several episodes. No blood in the vomiting. No diarrhea. Had low-grade fever. Denies any headache. No runny nose or sore throat. No cough. No chest pain or shortness of breath. Currently hemodynamically stable. Past medical history. As mentioned above Past surgical history. Gastric bypass surgery with cholecystectomy, hiatal hernia repair and acid reflux surgery as per patient. Appendectomy. Removal of fibroids. Social history. No smoking. No alcohol. Family history. Father had heart disease. Hypertension. Prostate cancer. Blood clots. Mother had diabetes and high blood pressure. Admission Exam Per Admitting Provider General- Not in distress. Head- atraumatic Eyes- EOMI ENT- oropharynx clear Neck- supple, no JVD Lungs- clear to auscultation no wheezing or crackles. Heart- regular rhythm; no murmur, no gallop. Abdomen- normal bowel sounds, soft, diffuse tender, no distension. Laparoscopic surgery sites no erythema or drainage seen. Extremities- no edema seen. Neuro- alert, oriented x 3; no facial palsy; no dysarthria; moves extremities. Skin- warm & dry Principal Dx & Hospital Course #1 = Principal Diagnosis (1) Abdominal pain, acute: (2) Nausea & vomiting: (3) Gastric bypass status for obesity: (4) S/P cholecystectomy: (5) Hypokalemia: (6) Morbid obesity: Plan Patient is a 47-year-old female who recently underwent bariatric surgery in [place] on April 27. She also had a hiatal hernia repaired and cholecystectomy at that time. 1 day prior to arrival she had severe abdominal pain associated with severe vomiting. She reports eating a small amount of solid ricotta and mozzarella with red sauce which was her first solid food postoperatively. 2 hours later her symptoms began. She denied any fevers or chills but was not sure if maybe there was a foodborne illness associated with this. She was admitted to the hospital and given IV fluids and supportive medications with pain control and antiemetics. She has an expected postoperative anemia and required some potassium supplementation. CT abdomen pelvis with oral contrast and IV contrast revealed expected postoperative changes after gastric bypass along with fluid and gas-filled small bowel loops with mild prominence which could represent an enteritis. There was a small amount of expected ascites postoperatively and she had a fibroid uterus. Of note there was also a probable left adnexal cyst which could be further evaluated with ultrasound if clinically indicated by PCP. Overall it was difficult to determine the exact cause of her nausea and vomiting but may have the differential including but not limited to foodborne illness versus postoperative reaction/complication. At time of discharge she was mentating and ambulating at baseline and tolerating p.o. Her initial symptoms had resolved and she was tolerating solid food and not vomiting for over 24 hours prior to going home. She has a follow-up postoperative appointment in the next couple of days in [place]. Close primary care follow-up is recommended. Discharge Exam CONSTITUTIONAL: obese, vitals as above, generally well-appearing, NAD EYES: normal conjunctivae, no scleral icterus ENT: external ear and nose normal, MMM NECK: trachea midline RESPIRATORY: clear to auscultation bilaterally, no crackles, rales or wheezes, normal respiratory effort CARDIOVASCULAR: regular rate and rhythm, S1 and 2 heard without murmurs, gallops or rubs, no JVD, no peripheral edema CHEST: inspection of chest was normal GASTROINTESTINAL: soft, nontender, ND, no guarding. Well healing laparoscopic incision sites are present. MUSCULOSKELETAL: strength 5/5 throughout, head is normocephalic and atraumatic SKIN: warm and dry NEUROLOGIC: CN 2-12 grossly intact, no sensory deficit, normal cognition, normal speech, no tremor PSYCHIATRIC: alert cooperative and oriented to person, place and time. Euthymic mood, makes good eye contact, language grossly intact, recent and remote memory grossly intact. Updated Medication List Medication Instructions Recorded Confirmed Type bupropion HCl 150 mg tablet,12 hr 150 mg PO BID 05/15/23 05/15/23 History sustained-release famotidine 20 mg tablet 20 mg PO DAILY 05/15/23 05/15/23 History gabapentin 400 mg capsule 400 mg PO TID 05/15/23 05/15/23 History telmisartan 20 mg tablet 20 mg PO DAILY 05/15/23 05/15/23 History trazodone 100 mg tablet 100 mg PO HS 05/15/23 05/15/23 History Hospital Stay Data Consultations 05/15/23 04:33 ED Decision to Admit Stat 05/15/23 11:54 Consult Gastroenterology Routine Consult General Surgery Routine Diagnostic Imagining Performed 05/14/23 22:40 CT abd pelvis oral and IV con Stat Pending Results Patient Have Any Pending Studies at Discharge: No Discharge Instructions Given to Patient (Per Discharging Provider) Please take all medications as instructed on discharge as below. Please follow-up with your bariatric surgeon in [place] following recent hospitalization for postoperative abdominal pain and nausea and vomiting. Please continue with bariatric diet as prescribed. Please follow-up with your primary care doctor within 1 week to ensure you are still doing well after returning home. You underwent a CT scan of the abdomen pelvis while admitted which revealed standard postoperative bypass changes along with some gas in your small bowel that may represent an enteritis. You also were found to have a fibroid uterus and there was a probable left adnexal cyst which could be further evaluated with ultrasound if clinically indicated. Please follow-up with your primary care doctor about this as outpatient. It was a pleasure taking care of you! Please call if you have any questions or problems. You can reach a [facility] hospitalist on duty at [facility] [address] 24 hours a day by calling [phone]. Take care of yourself. Yessenia Wright, DO [facility] Hospitalist Total Time Total Time Spent Total Time Spent (In Minutes): 60
== END 2023-05-17 16:09 | disposition home or self-care (01) ==
LOC: EDINP 20:58 → ED 20:58 → 3N 05-15 06:15 → SUATTDRO 05-16 18:46